=== PATIENT | male | born 1955 | race Caucasian/White ===

== ENCOUNTER 2020-05-25 20:56 | Emergency (ER) | payer MEDICAID, OTHER ==
[~2020-05-25] VITALS: Ht 180.3 cm; Wt 68.0 kg
[2020-05-25 21:05] VITALS: BP 158/86
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
[2020-05-25 21:21] VITALS: BP 158/86
[2020-05-25] MEDS ORDERED: Bacitracin Oint UD TOPIC ONE (21:45)
[2020-05-25] MEDS ORDERED: Acetaminophen 500mg (ES) tab ORAL ONE (21:45)
[2020-05-25] MEDS ORDERED: Ketorolac 30mg Inj IM ONE (21:45)
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
[2020-05-25] MEDS ORDERED: TRAMADOL HCL50 MG ORAL (22:22)
[2020-05-25] MEDS ORDERED: BACITRACIN15 GM TOPIC (22:22)
[2020-05-25] MEDS ORDERED: IBUPROFEN600 M1 ORAL (22:22)
--- NOTE | 2020-05-25 22:30 | NUR ---
ER DISCHARGE NOTE: Patient is cleared to be discharged per ERMD, pt is aox4, on room air, with stable vital signs. pt was given dc and prescription instructions, pt was able to verbalize understanding, pt id band removed. pt is able to ambulate with steady gait. pt took all belongings.
--- NOTE | 2020-05-26 11:00 | Diagnostic Imaging Report ---
Indication: Wrist pain status post injury Technique: 3 views of the right wrist Comparison: None Findings: There is an acute, comminuted, angulated and displaced intra-articular fracture of the distal radius. Is also an acute fracture of the ulnar styloid. There is overlying soft tissue swelling. No radiopaque foreign body seen. IMPRESSION: Acute fractures of the distal radius and ulnar styloid.
== END 2020-05-25 22:47 | disposition home or self-care (01) ==
LOC: EMR 21:20
DX: S52.591A Other fractures of lower end of right radius, initial encounter for closed fracture (principal); S52.611A Displaced fracture of right ulna styloid process, initial encounter for closed fracture; T14.8XXA Other injury of unspecified body region, initial encounter; F17.200 Nicotine dependence, unspecified, uncomplicated; W17.89XA Other fall from one level to another, initial encounter; Y93.55 Activity, bike riding; Y92.89 Other specified places as the place of occurrence of the external cause
CPT/HCPCS: 29125; 73110; 96372; J1885; Z7502; 99283